=== PATIENT | female | born 1985 | race African-American/Black ===

== ENCOUNTER 2020-08-26 21:19 | Inpatient (IN) | payer MEDICAID, OTHER ==
[~2020-08-26] VITALS: Ht 167.6 cm; Wt 93.9 kg
[~2020-08-26 21:19] MED LIST: PRE NATAL VITAMINS
[2020-08-26] MEDS ORDERED: KETOROLAC 30MG/ML VIAL IM ONE (22:45)
[2020-08-26] MEDS ORDERED: ACETAMINOPHEN 325MG TABLET PO ONE (23:45)
[2020-08-27] MEDS ORDERED: HYDROCODONE/ACETAMINOPHEN 5/325MG TABLET PO ONE (00:30)
[2020-08-27] MEDS ORDERED: TETANUS AND DIPHTHERIA TOX/PF 0.5ML SYR (ADULT) IM ONE (00:45)
[2020-08-27] MEDS ORDERED: TETANUS, DIPHTHERIA, PERTUSSIS VAC/PF 0.5ML (>7YR OLD) IM ONE (01:00)
[2020-08-27] MEDS ORDERED: ACETAMINOPHEN WITH CODEINE 300/30MG TABLET PO ONE (06:45)
[2020-08-27] MEDS ORDERED: KETOROLAC 30MG/ML VIAL IV PRN (11:00)
[2020-08-27] MEDS ORDERED: ONDANSETRON HCL 4MG/2ML INJ IV PRN (11:00)
[2020-08-27] MEDS: MORPHINE SULFATE 2 MG/ML CPJ (NOT FOR IM USE) IV PRN ×2 (11:01→21:36)
[2020-08-27 12:00] VITALS: BP 110/60
[2020-08-27 12:35] LABS: BASOPHILS % 0.6 % (0.0-2.0); EOSINOPHILS % 1.7 % (0.0-5.0); HEMATOCRIT. 40.6 % (36.0-48.0); HEMOGLOBIN. 13.3 g/dL (12.0-16.0); LYMPHOCYTES % 27.2 % (20.0-50.0); MEAN CORPUSCULAR VOLUME 82.4 fL (81.0-99.0); MONOCYTES % 8.7 % (2.0-8.0); NEUTROPHILS % 61.8 % (40.0-76.0); PLATELET 274 x1000/uL (130-400); RED BLOOD CELL COUNT 4.93 mill/uL (4.2-5.4); RED CELL DISTRIBUTION WIDTH 15.2 % (11.6-14.6)
[2020-08-27 12:44] VITALS: BP 114/68
[2020-08-27 12:54] LABS: CHLORIDE 106 mEq/L (98-107)
[2020-08-27] MEDS ORDERED: ENOXAPARIN 30MG/0.3ML SYR SUBCUT SCH (15:30)
[2020-08-27] MEDS: HYDROCODONE/ACETAMINOPHEN 10/325MG TABLET PO PRN (15:42)
[2020-08-27 16:00] VITALS: BP 120/65
[2020-08-27] MEDS: ENOXAPARIN 30MG/0.3ML SYR SUBCUT SCH (17:34)
[2020-08-27 20:00] VITALS: BP 112/66
[2020-08-28] VITALS: BP 112/62
[2020-08-28] MEDS: HYDROCODONE/ACETAMINOPHEN 10/325MG TABLET PO PRN ×3 (01:25→16:38)
[2020-08-28 04:00] VITALS: BP 103/63
[2020-08-28] MEDS: MORPHINE SULFATE 2 MG/ML CPJ (NOT FOR IM USE) IV PRN ×2 (05:46→22:13)
[2020-08-28] MEDS: ENOXAPARIN 30MG/0.3ML SYR SUBCUT SCH ×2 (05:47→17:39)
[2020-08-28 08:00] VITALS: BP 104/60
[2020-08-28 12:00] VITALS: BP 106/69
[2020-08-28 16:00] VITALS: BP 112/65
[2020-08-28 20:00] VITALS: BP 102/68
[2020-08-29] VITALS: BP 121/64
[2020-08-29] MEDS: HYDROCODONE/ACETAMINOPHEN 10/325MG TABLET PO PRN ×2 (02:21→11:00)
[2020-08-29 04:00] VITALS: BP 103/61
[2020-08-29] MEDS: ENOXAPARIN 30MG/0.3ML SYR SUBCUT SCH ×2 (05:31→17:42)
[2020-08-29 08:00] VITALS: BP 107/67
[2020-08-29] MEDS ORDERED: CEFAZOLIN SODIUM 1000MG/VIAL ONE (11:48)
[2020-08-29 12:00] VITALS: BP_SYST 104; BP_SYST 109; BP_DIAS 58; BP_DIAS 63
[2020-08-29 16:00] VITALS: BP 104/58
[2020-08-29 20:00] VITALS: BP 119/59
[2020-08-29] MEDS: MORPHINE SULFATE 2 MG/ML CPJ (NOT FOR IM USE) IV PRN (20:53)
[2020-08-30] VITALS: BP 96/58
[2020-08-30] MEDS: HYDROCODONE/ACETAMINOPHEN 10/325MG TABLET PO PRN ×3 (01:02→23:35)
[2020-08-30 04:00] VITALS: BP 98/47
[2020-08-30] MEDS: ENOXAPARIN 30MG/0.3ML SYR SUBCUT SCH ×2 (06:22→17:56)
[2020-08-30 08:00] VITALS: BP 108/61
[2020-08-30 12:00] VITALS: BP 116/69
[2020-08-30] MEDS ORDERED: HYDR-4009 PO (15:53)
[2020-08-30 16:00] VITALS: BP 104/64
[2020-08-30 20:00] VITALS: BP 112/59
[2020-08-31] VITALS: BP 112/69
[2020-08-31 04:00] VITALS: BP 102/52
[2020-08-31] MEDS: ENOXAPARIN 30MG/0.3ML SYR SUBCUT SCH ×2 (06:02→17:04)
[2020-08-31] MEDS: HYDROCODONE/ACETAMINOPHEN 10/325MG TABLET PO PRN ×2 (06:02→23:43)
[2020-08-31 08:00] VITALS: BP 100/51
[2020-08-31] MEDS: MORPHINE SULFATE 2 MG/ML CPJ (NOT FOR IM USE) IV PRN ×2 (11:53→17:04)
[2020-08-31 12:00] VITALS: BP 107/72
[2020-08-31 16:00] VITALS: BP 107/71
[2020-08-31 20:00] VITALS: BP 123/69
[2020-09-01] VITALS: BP 109/67
[2020-09-01] MEDS: ENOXAPARIN 30MG/0.3ML SYR SUBCUT SCH ×2 (06:02→18:02)
[2020-09-01] MEDS: HYDROCODONE/ACETAMINOPHEN 10/325MG TABLET PO PRN ×3 (06:03→22:57)
[2020-09-01 08:00] VITALS: BP 95/50
[2020-09-01 12:03] VITALS: BP 100/56
[2020-09-01 16:00] VITALS: BP 112/55
[2020-09-01 20:00] VITALS: BP 104/56
[2020-09-02] VITALS: BP 125/56
[2020-09-02 04:00] VITALS: BP 123/60
[2020-09-02] MEDS: HYDROCODONE/ACETAMINOPHEN 10/325MG TABLET PO PRN ×3 (06:00→20:45)
[2020-09-02] MEDS: ENOXAPARIN 30MG/0.3ML SYR SUBCUT SCH ×2 (06:01→17:15)
[2020-09-02 08:00] VITALS: BP 100/53
[2020-09-02 12:00] VITALS: BP 110/65
[2020-09-02 16:00] VITALS: BP 112/65
[2020-09-02 20:00] VITALS: BP 125/73
[2020-09-03] VITALS: BP 119/55
[2020-09-03 04:00] VITALS: BP 120/65
[2020-09-03] MEDS: ENOXAPARIN 30MG/0.3ML SYR SUBCUT SCH ×2 (05:28→18:27)
[2020-09-03] MEDS: HYDROCODONE/ACETAMINOPHEN 10/325MG TABLET PO PRN ×3 (05:29→18:28)
[2020-09-03 08:00] VITALS: BP 102/54
[2020-09-03 12:00] VITALS: BP 105/66
[2020-09-03 16:00] VITALS: BP 107/62
[2020-09-03 20:00] VITALS: BP 102/40
[2020-09-04] VITALS: BP 129/78
[2020-09-04] MEDS: HYDROCODONE/ACETAMINOPHEN 10/325MG TABLET PO PRN ×3 (01:40→17:02)
[2020-09-04 04:00] VITALS: BP 98/56
[2020-09-04] MEDS: ENOXAPARIN 30MG/0.3ML SYR SUBCUT SCH ×2 (05:31→17:03)
[2020-09-04 06:22] LABS: BASOPHILS % 0.6 % (0.0-2.0); EOSINOPHILS % 5.7 % (0.0-5.0); HEMATOCRIT. 38.3 % (36.0-48.0); HEMOGLOBIN. 12.8 g/dL (12.0-16.0); LYMPHOCYTES % 45.2 % (20.0-50.0); MEAN CORPUSCULAR HEMOGLOBIN 27.2 pg (28.0-32.0); MEAN CORPUSCULAR VOLUME 81.3 fL (81.0-99.0); MONOCYTES % 8.6 % (2.0-8.0); NEUTROPHILS % 39.9 % (40.0-76.0); PLATELET 295 x1000/uL (130-400); RED BLOOD CELL COUNT 4.71 mill/uL (4.2-5.4)
[2020-09-04 07:30] LABS: CHLORIDE 106 mEq/L (98-107)
[2020-09-04 08:00] VITALS: BP 93/51
[2020-09-04 12:00] VITALS: BP 141/87
[2020-09-04] MEDS ORDERED: LACTULOSE 20G/30ML UDC PO NR (17:30)
[2020-09-04 20:00] VITALS: BP 115/60
[2020-09-05] VITALS: BP 108/51
[2020-09-05] MEDS: HYDROCODONE/ACETAMINOPHEN 10/325MG TABLET PO PRN ×2 (00:26→07:30)
[2020-09-05 04:00] VITALS: BP 101/43
[2020-09-05] MEDS: ENOXAPARIN 30MG/0.3ML SYR SUBCUT SCH (06:03)
[2020-09-05 08:00] VITALS: BP 112/66
[2020-09-05] MEDS ORDERED: DOCUSATE SODIUM 250MG CAPSULE PO SCH (09:00)
[2020-09-05 10:55] VITALS: BP 112/66
== END 2020-09-05 11:10 | disposition home health service (06) | DRG 342 ==
LOC: ER 21:19 → 6EST 08-27 02:10 → ENRESERV 08-27 08:16
PROVIDERS: ADMIT Internal Medicine; ATTEND Internal Medicine
DX: S82.002A Unspecified fracture of left patella, initial encounter for closed fracture (principal); S82.145A Nondisplaced bicondylar fracture of left tibia, initial encounter for closed fracture; S92.354A Nondisplaced fracture of fifth metatarsal bone, right foot, initial encounter for closed fracture; F17.210 Nicotine dependence, cigarettes, uncomplicated; Z20.822 Contact with and (suspected) exposure to COVID-19; F32.9 Major depressive disorder, single episode, unspecified; M54.2 Cervicalgia; Y93.89 Activity, other specified; V43.52XA Car driver injured in collision with other type car in traffic accident, initial encounter; Y99.8 Other external cause status; Z71.6 Tobacco abuse counseling; Y92.410 Unspecified street and highway as the place of occurrence of the external cause
CPT/HCPCS: 36415; 71045; 73560; 73630; 73700; 80048; 85025; 87426; 90714; 90715; 97110; 97162; 97166; 97530; 97535; 99285; J0690; J1650; J2270; L1830

== ENCOUNTER 2023-09-22 12:01 | Emergency (ER) | payer MEDICAID ==
[~2023-09-22] VITALS: Ht 167.6 cm; Wt 90.0 kg
[~2023-09-22 12:01] MED LIST changes: +GUAI-741 MT; +HYDR-4009 PO; +INDO50CA98 MT
[2023-09-22 12:39] VITALS: O2SAT 100
[2023-09-22] MEDS ORDERED: AMOX-494 MT (15:08)
[2023-09-22] MEDS: IBUPROFEN 600MG TABLET PO ONE (15:11)
[2023-09-22 15:50] VITALS: BP 115/77; PULSE 89; RESP 18; TEMP 97.8
== END 2023-09-22 15:54 | disposition home or self-care (01) ==
LOC: ER 12:09
DX: J02.0 Streptococcal pharyngitis (principal); M79.672 Pain in left foot; R60.9 Edema, unspecified
CPT/HCPCS: 73630; 87430; 99284